=== PATIENT | female | born 1950 | race American Indian/Alaskan Native ===

== ENCOUNTER 2017-06-27 08:17 | Day surgery (SDC) | payer MEDICARE ==
[2017-06-27] MEDS ORDERED: Lactated Ringer's 500 ML IV ONE (08:38)
[2017-06-27] MEDS ORDERED: Propofol 10 mg/ml Inj (20 ML) ONE (09:20)
[2017-06-27] MEDS ORDERED: Lidocaine PF 2% (5 ml) Inj (For Cardiac Arrhy) IV ONE (09:20)
[2017-06-27 09:41] VITALS: PULSE 60
[2017-06-27 10:01] VITALS: TEMP 97.2
[2017-06-27 10:18] VITALS: BP 125/65; RESP 17; O2SAT 99
== END 2017-06-27 10:57 | disposition home or self-care (01) ==
LOC: H.ENDO 08:17
PROVIDERS: ATTEND Internal Medicine Gastroenterology
DX: K29.50 Unspecified chronic gastritis without bleeding (principal); K57.30 Diverticulosis of large intestine without perforation or abscess without bleeding; K64.8 Other hemorrhoids; R63.4 Abnormal weight loss
CPT/HCPCS: 43239; 45378; 88305; J2704; J7120